=== PATIENT | female | born 1960 | race Caucasian/White ===

== ENCOUNTER 2020-06-16 02:36 | Emergency (ER) | payer OTHER ==
[~2020-06-16 02:36] MED LIST: CEFUROXIME500 MG PO; FEOSOL325 MG PO; FLEXERIL 10 MG10 MG PO; MUCINEX D ER T1 EACH PO; NAPROSYN500 MG PO; PT UNSURE OF MEDS; THERAGRAN M TAB1 EA PO; ZANTAC150 MG PO; ZOLOFT PO
[2020-06-16 03:08] LABS: RED BLOOD COUNT 4.26 M/UL (4.00-5.10); WHITE BLOOD COUNT 5.2 K/UL (4.5-11.0)
[2020-06-16 03:35] LABS: BUN/CREATININE RATIO 16 (0-10)
[2020-06-16] MEDS ORDERED: OMNICEF 300 MG300 MG PO (05:03)
== END 2020-06-16 05:20 | disposition home or self-care (01) ==
LOC: ER1 02:36
PROVIDERS: Family Medicine
DX: F11.10 Opioid abuse, uncomplicated (principal); F15.10 Other stimulant abuse, uncomplicated; F13.10 Sedative, hypnotic or anxiolytic abuse, uncomplicated; N30.90 Cystitis, unspecified without hematuria; J44.9 Chronic obstructive pulmonary disease, unspecified; R74.8 Abnormal levels of other serum enzymes; F17.200 Nicotine dependence, unspecified, uncomplicated
CPT/HCPCS: 71045; 80053; 80307; 81001; 82550; 82553; 83690; 83874; 84484; 85025; 87077; 87086; 87186; 93005; 96374; 99285; J0696

== ENCOUNTER → 2020-08-04 | Outpatient (CLI) | payer OTHER ==
[~2020-08-04] MED LIST changes: +OMNICEF 300 MG300 MG PO
[2020-08-04 16:06] LABS: HEMOGLOBIN 11.2 gm/dl (12.3-15.3); RED BLOOD COUNT 3.76 M/UL (4.00-5.10); WHITE BLOOD COUNT 4.4 K/UL (4.5-11.0)
[2020-08-04 16:28] LABS: BUN/CREATININE RATIO 16 (0-10)
== END ==
LOC: LAB 14:56
PROVIDERS: Internal Medicine
DX: N12 Tubulo-interstitial nephritis, not specified as acute or chronic (principal); E87.6 Hypokalemia; E83.42 Hypomagnesemia; E83.39 Other disorders of phosphorus metabolism; A41.9 Sepsis, unspecified organism; R65.20 Severe sepsis without septic shock; N17.9 Acute kidney failure, unspecified; M47.816 Spondylosis without myelopathy or radiculopathy, lumbar region; M54.17 Radiculopathy, lumbosacral region; M25.78 Osteophyte, vertebrae
CPT/HCPCS: 36415; 72110; 80048; 83735; 84100; 85025; 86140

== ENCOUNTER 2020-09-23 03:07 | Emergency (ER) | payer OTHER ==
[2020-09-23 04:35] LABS: HEMOGLOBIN 9.9 gm/dl (12.3-15.3); RED BLOOD COUNT 3.38 M/UL (4.00-5.10)
[2020-09-23 05:03] LABS: BUN/CREATININE RATIO 22 (0-10)
== END 2020-09-23 07:13 | disposition home or self-care (01) ==
LOC: ER1 03:07
DX: S09.90XA Unspecified injury of head, initial encounter (principal); F11.20 Opioid dependence, uncomplicated; D64.9 Anemia, unspecified; G89.29 Other chronic pain; R00.1 Bradycardia, unspecified; R42 Dizziness and giddiness; W19.XXXA Unspecified fall, initial encounter
CPT/HCPCS: 70450; 72125; 80053; 82550; 82553; 83874; 84484; 85025; 93005; 99284